=== PATIENT | male | born 1955 | race Caucasian/White ===

== ENCOUNTER 2016-07-11 20:56 | Emergency (ER) | payer OTHER ==
[~2016-07-11] VITALS: Ht 172.7 cm; Wt 73.5 kg
[~2016-07-11 20:56] MED LIST: APA PO; BENICAR5 MG PO; HYDROCODONE PO; TRICOR48 MG PO
[2016-07-11 21:03] VITALS: BP 142/81
--- NOTE | 2016-07-11 22:18 | NUR ---
PATIENT TO ER BED 7.
--- NOTE | 2016-07-11 22:25 | NUR ---
PT BIB TO ED WITH C/O EPIGASTRIC PAIN,UMBILICAL PAIN FOR 3 DAYS, WITH DIARRHEA, NAUSEA. PT STATES HX OF STENT IN HEART AND STROKE IN 2010. DENIES V; SKIN IS PINK/WARM/DRY; AAOX4 WITH EVEN AND STEADY GAIT; LUNGS CLEAR BL; HR EVEN AND REGULAR; PT DENIES ANY FEVER, CP, SOB, OR COUGH AT THIS TIME; PATIENT STATES PAIN OF 6/10 AT THIS TIME; VSS; PATIENT POSITIONED FOR COMFORT; HOB ELEVATED; BEDRAILS UP X2; BED DOWN. ER MD MADE AWARE OF PT STATUS.
--- NOTE | 2016-07-11 22:30 | NUR ---
Patient being evaluated by physician at bedside.
[2016-07-11] MEDS ORDERED: NACL 0.9% 1,000 ML IV ONE (22:35)
[2016-07-11] MEDS ORDERED: fentaNYL 0.05 MG/ML VIAL IVP ONE (22:40)
[2016-07-11] MEDS ORDERED: ONDANSETRON 4 MG/2 ML VIAL IVP ONE (22:40)
[2016-07-12 00:18] VITALS: BP 136/72
--- NOTE | 2016-07-12 00:18 | NUR ---
Patient discharged with v/s stable. Written and verbal after care instructions given and explained. Patient alert, oriented and verbalized understanding of instructions. Ambulatory with steady gait. All questions addressed prior to discharge. ID band removed. Patient advised to follow up with PMD. Rx of MAGNESIUM CITRATE, MIRALAX AND TRAMADOL HYDROCHLORIDE given. Patient educated on indication of medication including possible reaction and side effects. Opportunity to ask questions provided and answered.
--- NOTE | 2016-07-12 09:31 | NUR ---
ADDENDUM: RECIEVED CALL FROM [facility] ARMIDA RAND RESULT OF CT. ABD/PELVIS. REPORT GIVEN TO DR. GONZALEZ
== END 2016-07-12 00:18 | disposition home or self-care (01) ==
LOC: MED 20:56
DX: R10.13 Epigastric pain (principal); I10 Essential (primary) hypertension; Z86.73 Personal history of transient ischemic attack (TIA), and cerebral infarction without residual deficits
CPT/HCPCS: 36415; 74022; 80053; 83690; 85025; 85610; 85730; 93005; 96361; 96374; 96375; 99285; J2405; J3010

== ENCOUNTER 2016-09-25 09:53 | Emergency (ER) | payer OTHER ==
[~2016-09-25] VITALS: Ht 172.7 cm; Wt 75.1 kg
[~2016-09-25 09:53] MED LIST changes: -APA PO; -BENICAR5 MG PO; -HYDROCODONE PO; +OLME5TAB PO; +TRI48 PO; -TRICOR48 MG PO; +[UNRECOGNIZED DRUG - CODE] PO
[2016-09-25 10:28] VITALS: BP 155/110
--- NOTE | 2016-09-25 14:18 | NUR ---
Patient to OF.
--- NOTE | 2016-09-25 14:20 | NUR ---
61M BIB FAMILY C/O SHAKINESS X TODAY; PT STATES CAME IN FOR BLOOD TEST AT THE HOSPITAL BUT WAS SENT TO ER FOR TREMORS IN BL ARMS, LIPS, AND DIZZINESS; PT STATES NO PAIN, N/V/D, OR VISION CHANGES AT THIS TIME; HX: HTN, HIGH CHOLESTEROL; PT AA&OX4, PERRLA, BL LUNG SOUNDS CLEAR, RR EVEN/UNLABORED, SKIN IS WARM/DRY/INTACT AT THIS TIME; PT RESITNG IN CHAIR, POSITIONED FOR COMFORT; ER MD MADE AWARE OF STATUS. WILL CONTINUE TO MONITOR.
--- NOTE | 2016-09-25 14:24 | NUR ---
Pt being evaluated by TIERA Torres in overflow.
--- NOTE | 2016-09-25 14:43 | NUR ---
Lab drawing in overflow.
[2016-09-25 14:51] LABS: BASOPHILS # (AUTO) 0.2 K/uL (0.00-0.22); BASOPHILS % (AUTO) 2.5 % (0.0-2.0); EOSINOPHILS # (AUTO) 0.2 K/uL (0-0.4); EOSINOPHILS % (AUTO) 2.4 % (0.0-4.0); HEMATOCRIT 44.2 % (36-52); HEMOGLOBIN 14.7 g/dL (12.0-18.0); LYMPHOCYTES # (AUTO) 1.8 K/uL (2.0-11.5); LYMPHOCYTES % (AUTO) 21.4 % (20.5-51.1); MEAN CORPUSCULAR HEMOGLOBIN 31 pg (27-31); MEAN CORPUSCULAR HGB CONC 33 g/dL (33-37); MEAN CORPUSCULAR VOLUME 92 fL (80-94); MONOCYTES # (AUTO) 0.3 K/uL (0.8-1.0); MONOCYTES % (AUTO) 3.2 % (1.7-9.3); NEUTROPHILS % (AUTO) 70.5 % (42.2-75.2); PLATELET COUNT (AUTO) 231 K/uL (140-450); RED BLOOD CELL COUNT(AUTO) 4.79 MIL/uL (4.20-6.10); RED CELL DISTRIBUTION WIDTH 12.7 % (11.6-13.7); WHITE BLOOD COUNT (AUTO) 8.5 K/uL (4.8-10.8)
[2016-09-25 14:58] LABS: ANION GAP 13.1 (8-16); CALCIUM 8.6 mg/dL (8.5-10.1); CREATININE 0.7 mg/dL (0.7-1.3); POTASSIUM 4.1 mmol/L (3.5-5.1)
[2016-09-25 16:02] VITALS: BP 146/82
--- NOTE | 2016-09-25 16:02 | NUR ---
Patient discharged with v/s stable. Written and verbal after care instructions given and explained. Patient verbalized understanding. Ambulatory with steady gait. All questions addressed prior to discharge. Advised to follow up with PMD.
== END 2016-09-25 16:02 | disposition home or self-care (01) ==
LOC: EDSTATUS 09:53 → MED 09:53
DX: R55 Syncope and collapse (principal); I10 Essential (primary) hypertension; E78.5 Hyperlipidemia, unspecified; Z79.899 Other long term (current) drug therapy
CPT/HCPCS: 36415; 80048; 82948; 85025; 99284

== ENCOUNTER 2017-09-22 12:04 | Emergency (ER) | payer OTHER ==
[~2017-09-22] VITALS: Ht 167.6 cm; Wt 70.3 kg
[~2017-09-22 12:04] MED LIST changes: +ACET-9526 PO; -[UNRECOGNIZED DRUG - CODE] PO
[2017-09-22 12:13] VITALS: BP 136/76
--- NOTE | 2017-09-22 12:32 | NUR ---
PT. CAME INTO THE ED DUE TO PAIN UPON URINATION X 10 DAYS. PT. STATES " IT HURTS WHEN I GO PEE AND I GO JUST A LITTLE BIT EVERY 30 MIN, I WENT TO MY DOCTOR AND HE GAVE ME ANTIBIOTICS AND AZO AND IT STILL HAS NOT GOTTEN BETTER". PT. HAS 9/10 PAIN UPON URINATION THAT IS NON RADIATING AND DESRIBED BURNING. PT. DENIES ANY FEVERS AT THIS TIME. PT. DENIES HAVING ANY PROSTATE HISTORY. SUPRAPUBIC TENDERNESS UPON PALPATION. ER MD NOTIFIED. WILL CONTINUE TO MONITOR.
--- NOTE | 2017-09-22 13:15 | NUR ---
PT. ABLE TO VOID AND PROVIDE A FULL CUP OF URINE SAMPLE, ER MD ALLISON MADE AWARE. PER DOCTOR OSBORN CATHETER INSERTION NOT NEEDED AT THIS TIME.
[2017-09-22 13:25] LABS: BASOPHILS % (AUTO) 0.6 % (0.0-2.0); EOSINOPHILS # (AUTO) 0.3 K/uL (0-0.4); EOSINOPHILS % (AUTO) 4.3 % (0.0-4.0); HEMOGLOBIN 13.9 g/dL (12.0-18.0); LYMPHOCYTES # (AUTO) 1.4 K/uL (2.0-11.5); LYMPHOCYTES % (AUTO) 20.5 % (20.5-51.1); MEAN CORPUSCULAR HEMOGLOBIN 31 pg (27-31); MEAN CORPUSCULAR HGB CONC 33 g/dL (33-37); MEAN CORPUSCULAR VOLUME 92.4 fL (80-94); MONOCYTES # (AUTO) 0.5 K/uL (0.8-1.0); MONOCYTES % (AUTO) 6.7 % (1.7-9.3); NEUTROPHILS # (AUTO) 4.7 K/uL (1.8-7.7); NEUTROPHILS % (AUTO) 67.9 % (42.2-75.2); PLATELET COUNT (AUTO) 248 K/uL (140-450); RED BLOOD CELL COUNT(AUTO) 4.54 MIL/uL (4.20-6.10); RED CELL DISTRIBUTION WIDTH 13.4 % (11.6-13.7)
[2017-09-22 13:28] LABS: APPEARANCE,URINE CLEAR (CLEAR); BILIRUBIN,URINE NEGATIVE (NEGATIVE); BLOOD, URINE 2+ (NEGATIVE); COLOR,URINE YELLOW (YELLOW); LEUKOCYTE ESTERASE ,URINE TRACE (NEGATIVE); NITRITE, URINE NEGATIVE (NEGATIVE); UGLUCOSE NEGATIVE (NEGATIVE)
[2017-09-22 13:37] LABS: ANION GAP 12.8 (8-16); CREATININE 0.8 mg/dL (0.7-1.3); POTASSIUM 3.8 mmol/L (3.5-5.1)
[2017-09-22 13:37] LABS: RBC,URINE 3-10 (FEW) /HPF (0-5); WBC,URINE 0-5 (RARE) /HPF (0-5)
[2017-09-22 13:51] LABS: ALBUMIN 3.6 g/dL (3.4-5.0); TOTAL BILIRUBIN 0.4 mg/dL (0.0-1.0)
--- NOTE | 2017-09-22 14:03 | NUR ---
PT. RESTING COMFORTABLY IN BED, RR EVEN AND UNLABORED. BED IN LOWEST POSITION. WILL CONTINUE TO MONITOR.
[2017-09-22] MEDS ORDERED: PHENAZOPYRIDINE 100 MG TAB PO ONE (14:05)
[2017-09-22] MEDS ORDERED: IBUPROFEN 400 MG TAB PO ONE (14:05)
[2017-09-22 14:24] VITALS: BP 132/81
--- NOTE | 2017-09-22 14:25 | NUR ---
Patient discharged with v/s stable. Written and verbal after care instructions given and explained. Patient alert, oriented and verbalized understanding of instructions. Ambulatory with steady gait. All questions addressed prior to discharge. ID band removed. Patient advised to follow up with PMD. Rx of TRAMADOL/KEFLEX given. Patient educated on indication of medication including possible reaction and side effects. Opportunity to ask questions provided and answered.
== END 2017-09-22 14:25 | disposition home or self-care (01) ==
LOC: MED 12:04
DX: N40.1 Benign prostatic hyperplasia with lower urinary tract symptoms (principal); N39.0 Urinary tract infection, site not specified; I25.2 Old myocardial infarction; I10 Essential (primary) hypertension; Z79.899 Other long term (current) drug therapy
CPT/HCPCS: 36415; 80053; 81001; 83605; 85025; 87040; 87086; 99284

== ENCOUNTER 2017-10-16 02:59 | Inpatient (IN) | payer OTHER, MEDICAID ==
[~2017-10-16] VITALS: Ht 172.7 cm; Wt 67.1 kg
[2017-10-16 03:00] VITALS: BP 160/80
--- NOTE | 2017-10-16 03:17 | NUR ---
PT TAKEN TO BED 11
[2017-10-16] MEDS ORDERED: KETOROLAC 30 MG/ML VIAL IVP ONE (03:20)
[2017-10-16] MEDS ORDERED: ASPIRIN 81 MG TAB.CHEW PO ONE (03:20)
--- NOTE | 2017-10-16 03:21 | NUR ---
PATIENT PRESENTS TO ED WITH C/O CHEST PAIN RADAITING TO LT ARM X 3 DAYS. DENIES SOB, N/V. PT SKIN IS PINK/WARM/DRY; AAOX4 WITH EVEN AND STEADY GAIT; LUNGS CLEAR BL; PATIENT STATES PAIN OF 8/10 AT THIS TIME; PATIENT POSITIONED FOR COMFORT; HOB ELEVATED; BEDRAILS UP X2; BED DOWN. ER MD MADE AWARE OF PT STATUS.
[2017-10-16 03:36] LABS: BASOPHILS % (AUTO) 0.4 % (0.0-2.0); EOSINOPHILS # (AUTO) 0.2 K/uL (0-0.4); EOSINOPHILS % (AUTO) 2.2 % (0.0-4.0); HEMATOCRIT 41.4 % (36-52); LYMPHOCYTES # (AUTO) 2.6 K/uL (2.0-11.5); LYMPHOCYTES % (AUTO) 34.2 % (20.5-51.1); MEAN CORPUSCULAR HEMOGLOBIN 31 pg (27-31); MEAN CORPUSCULAR HGB CONC 34 g/dL (33-37); MEAN CORPUSCULAR VOLUME 91.7 fL (80-94); MONOCYTES # (AUTO) 0.4 K/uL (0.8-1.0); MONOCYTES % (AUTO) 5.8 % (1.7-9.3); NEUTROPHILS # (AUTO) 4.4 K/uL (1.8-7.7); NEUTROPHILS % (AUTO) 57.4 % (42.2-75.2); PLATELET COUNT (AUTO) 197 K/uL (140-450); RED BLOOD CELL COUNT(AUTO) 4.52 MIL/uL (4.20-6.10); RED CELL DISTRIBUTION WIDTH 13.2 % (11.6-13.7); WHITE BLOOD COUNT (AUTO) 7.6 K/uL (4.8-10.8)
--- NOTE | 2017-10-16 03:40 | NUR ---
LABS AND PIV DONE AT BEDSIDE. PT TOLERATED WELL.
[2017-10-16] MEDS ORDERED: METO25TA PO (03:41)
[2017-10-16] MEDS ORDERED: AMLO5TAB PO ×2 (03:41→05:37)
[2017-10-16] MEDS ORDERED: OMEP20TC12 PO (03:41)
[2017-10-16] MEDS ORDERED: ASPI-1677 PO (03:41)
[2017-10-16] MEDS ORDERED: FURO-572 PO (03:42)
[2017-10-16] MEDS ORDERED: PRAV20TA2 PO (03:42)
--- NOTE | 2017-10-16 03:45 | NUR ---
Dr. Jauregui evaluating patient at bedside.
[2017-10-16 03:46] LABS: ANION GAP 14.1 (8-16); CARBON DIOXIDE 26.3 mmol/L (21-32); CREATININE 0.9 mg/dL (0.7-1.3); POTASSIUM 3.4 mmol/L (3.5-5.1)
[2017-10-16 03:52] LABS: ALBUMIN 4.4 g/dL (3.4-5.0); TOTAL BILIRUBIN 0.5 mg/dL (0.0-1.0)
--- NOTE | 2017-10-16 03:58 | NUR ---
X-Ray at bedside.
[2017-10-16 04:13] LABS: PROTHROMBIN TIME 10.2 secs (10.8-13.4)
[2017-10-16] MEDS ORDERED: ACETAMINOPHEN 325 MG TAB PO PRN (04:25)
[2017-10-16] MEDS ORDERED: ONDANSETRON 4 MG/2 ML VIAL IVP PRN (04:25)
[2017-10-16] MEDS ORDERED: ZOLPIDEM 5 MG TAB PO PRN (04:25)
[2017-10-16] MEDS ORDERED: NITROGLYCERIN 0.4 MG TAB SL PRN (04:25)
--- NOTE | 2017-10-16 04:44 | NUR ---
APatient will be admitted to care of DR JAIME. Admited to TELE. Will go to room 106B. Belongings list completed. Report to SARAHI MCKEON.
[2017-10-16] MEDS ORDERED: POTASSIUM CHLORIDE 10 MEQ TABER PO SCH (05:00)
--- NOTE | 2017-10-16 05:00 | NUR ---
ADMITTED THIS 62 YEAR OLD MALE FORM ER PER BETTINA WITH CC OF CHEST PAIN X3 DAYS, AMBULATED TO BED WITH STEADY GAIT, ASSESSMENT DONE, PT SPEAKS LUXEMBOURGISH AND SOME ARABIC, VITAL SIGNS TAKEN, BP SLIGHTLY ELEVATED, DENIES PAIN AT THIS TIME, ORIENTED TO ROOM AND CALL LIGHT, PLAN OF CARE DISCUSSED, CALL LIGHT WITHIN REACH.
[2017-10-16 05:21] VITALS: BP 150/71
[2017-10-16] MEDS: NACL 0.9% 1,000 ML IV SCH (05:34)
[2017-10-16] MEDS ORDERED: MELA5TAB5 PO (05:37)
--- NOTE | 2017-10-16 05:45 | NUR ---
PT AMBULATED TO BR WITH STEADY GAIT, VOIDED FREELY, URINE SENT TO LAB FOR TEST, PT COMPLAINING OF LACK OF SLEEP FOR 3 DAYS WHEN CHEST PAIN BEGAN, 1 TIME DOSE ATIVAN PO GIVEN ORDERED, SAFETY MEASURES IN PLACE, MONITORED CLOSELY.
[2017-10-16] MEDS ORDERED: LORazepam 1 MG TAB PO SCH (06:00)
[2017-10-16 06:30] LABS: APPEARANCE,URINE CLEAR (CLEAR); BILIRUBIN,URINE NEGATIVE (NEGATIVE); BLOOD, URINE 2+ (NEGATIVE); COLOR,URINE YELLOW (YELLOW); LEUKOCYTE ESTERASE ,URINE TRACE (NEGATIVE); NITRITE, URINE NEGATIVE (NEGATIVE); UGLUCOSE NEGATIVE (NEGATIVE)
[2017-10-16 06:40] LABS: RBC,URINE 3-10 (FEW) /HPF (0-5); WBC,URINE 0-5 (RARE) /HPF (0-5)
[2017-10-16 07:20] LABS: CHOL/HDL RATIO 3.5 (1-4.5); FREE T4 (FREE THYROXINE) 1.6 ng/dL (0.76-1.46); MAGNESIUM 2.1 mg/dL (1.8-2.4); PHOSPHORUS 2.9 mg/dL (2.5-4.9); THYROID STIMULATING HORMONE 2.57 uIU/mL (0.34-3.74)
--- NOTE | 2017-10-16 07:20 | NUR ---
PT AWAKE, NO DISTRESS NOTED, REPORT GIVEN TO SARAHI MC FOR CONTINUITY OF CARE.
--- NOTE | 2017-10-16 07:21 | NUR ---
RECEIVED REPORT FROM FACE CLEANER NURSE LINDA AT BEDSIDE FOR CONTINUITY OF CARE. PT IS AWAKE AND ORIENTED X4. INTRODUCED SELF AND UPDATED BOARD. PT DENIES PAIN, DENIES HAVING ANY CHEST PAIN. STATED HE IS SLEEPY AND DID NOT GET MUCH SLEEP LAST NIGHT. LUNG SOUNDS CLEAR ON AUSCULTATION. O2 SAT 96% ON RA. SKIN INTACT. IV TO R HAND 20G INTACT. NO SIGNS OF DISTRESS. ASSISTED PT TO SITTING UP POSITION IN BED. CALL LIGHT WITHIN REACH. BED IN LOW POSITION, WHEELS LOCKED. WILL CONTINUE TO MONITOR.
[2017-10-16] MEDS ORDERED: PANTOPRAZOLE 40 MG TABEC PO SCH (07:30)
[2017-10-16 07:45] VITALS: BP 137/76
[2017-10-16] MEDS: DOCUSATE SODIUM 100 MG GELCAP PO SCH ×2 (08:11→21:00)
[2017-10-16] MEDS: METOPROLOL 25 MG TAB PO SCH (08:11)
[2017-10-16] MEDS: LISINOPRIL 5 MG TAB PO SCH (08:11)
[2017-10-16] MEDS: ASPIRIN 81 MG TAB.CHEW PO SCH (08:12)
[2017-10-16] MEDS: FUROSEMIDE 20 MG TAB PO SCH (08:12)
--- NOTE | 2017-10-16 08:19 | NUR ---
ADMINISTERED SCHEDULED MEDS. EDUCATED PT ON PURPOSE AND SIDE EFFECTS. PT VERBALIZED UNDERSTANDING. TOLERATED MEDS WELL. PT STATED HE WANTED TO SLEEPING. NO SIGNS OF DISTRESS. INFORMED PT TO USE CALL LIGHT WHEN NEED OF ASSISTANCE. VERBALIZED UNDERSTANDING. WILL CONTINUE TO MONITOR.
[2017-10-16] MEDS ORDERED: OMEPRAZOLE PO SCH (09:00)
[2017-10-16] MEDS ORDERED: NON-FORMULARY ITEM (Pravastatin Sodium* (Pravachol*) 20 MG) PO SCH (09:00)
--- NOTE | 2017-10-16 10:19 | NUR ---
PT SLEEPING IN ROOM, VOIDED IN URINAL 300ML OUTPUT OF STRAW COLORED URINE NOTED. NO SIGNS OF DISTRESS. ASKED IF PT NEEDED ANYTHING RIGHT NOW. PT STATED "NO." CALL LIGHT WITHIN REACH. BED IN LOW POSITION, WHEELS LOCKED, WILL CONTINUE TO MONITOR.
--- NOTE | 2017-10-16 10:30 | NUR ---
PATIENT HAS BEEN SCREENED AND CATEGORIZED HIGH NUTRITION RISK. PATIENT WILL BE SEEN WITHIN 1-2 DAYS OF ADMISSION. 10/16/17 10/17/[address]
--- NOTE | 2017-10-16 11:00 | NUR ---
PT WAS COMPLAINING OF HEADACHE. ADMINISTERED TYLENOL PO FOR HEADACHE. PT TOLERATED WELL. NO SIGNS OF DISTRESS. ASKED IF PT NEEDED ANYTHING ELSE. STATED "NO". WILL CONTINUE TO MONITOR.
[2017-10-16 12:00] VITALS: BP 118/66
--- NOTE | 2017-10-16 12:28 | NUR ---
DR. FLEMING CAME TO SEE PT CONSULT. PT STATED "NO MORE HEADACHE." DENIES CHEST PAIN. VS WNL. WILL CONTINUE TO MONITOR.
[2017-10-16] MEDS ORDERED: SULF-58 PO (13:10)
[2017-10-16] MEDS ORDERED: ASCO1CAP75 PO (13:10)
[2017-10-16] MEDS ORDERED: LACTOBACILLUS RHAMNOSUS GG 1 EACH CAP PO SCH (13:30)
--- NOTE | 2017-10-16 14:00 | NUR ---
ADMINISTERED ROCEPHIN IVPB AND CULTURELLE PO. EDUCATED PT ON PURPOSE OF MED AND SIDE EFFECTS. PT TO VERBALIZED UNDERSTANDING. STATED HE TOOK ROCEPHIN PO BEFORE. FAMILY AT BEDSIDE . NO COMPLAINTS AT THIS TIME. WILL CONTINUE TO MONITOR.
--- NOTE | 2017-10-16 14:53 | NUR ---
PT AMBULATED DOWN THE CUELLO WITH STANDBY ASSIST. WALKED WITH STEADY GAIT. NO DYSPNEA. PT DENIES CHEST PAIN POST AMBULATION. FAMILY AT BEDSIDE. PT ASKED FOR JELL-O. NO SIGNS OF DISTRESS. CALL LIGHT WITHIN REACH. WILL CONTINUE TO MONITOR.
[2017-10-16] MEDS ORDERED: amLODIPine 5 MG TAB PO SCH ×2 (15:00→17:00)
--- NOTE | 2017-10-16 15:14 | NUR ---
ATTEMPTED TO COMPLETE EKG FAMILY STATES THEY WANT PT LEFT ALONE TO SLEEP. EXPLAINED INDICATIONS FOR PROCEDURE STILL WANT PT TO BE LEFT ALONE TO SLEEP. WILL CHECK BACK AT A LATER TIME.
[2017-10-16 16:00] VITALS: BP 106/56
--- NOTE | 2017-10-16 17:15 | NUR ---
PT SLEEPING WITH VISIBLE RESPIRATIONS, NO SIGNS OF DISTRESS. FAMILY AT BEDSIDE. PT DENIES CHEST PAIN. CALL LIGHT WITHIN REACH. WILL CONTINUE TO MONITOR.
--- NOTE | 2017-10-16 19:27 | NUR ---
ENDORSED PT TO WEED CUTTER NURSE MARCIAL AT BEDSIDE FOR CONTINUITY OF CARE. PT IN STABLE CONDITION.
--- NOTE | 2017-10-16 19:28 | NUR ---
RECEIVED REPORT FROM DAY SHIFT NURSE. AAOX4. NO C/O PAIN. NO RESP DISTRESS NOTED. PT ON ROOM AIR. IV TO RIGHT HAND #20G, PATENT AND INTACT. SKIN INTACT. DISCUSSED PLAN OF CARE, PT VERBALIZED UNDERSTANDING. SAFETY PRECAUTION IN PLACE. CALL LIGHT WITHIN REACH.
[2017-10-16 20:00] VITALS: BP 99/56
--- NOTE | 2017-10-16 20:42 | NUR ---
PT REFUSED COLACE. PER PT, HE DOESN'T NEED IT, HE HAD 2 BM TODAY.
[2017-10-16] MEDS ORDERED: SIMVASTATIN 10 MG TAB PO SCH (21:00)
[2017-10-16] MEDS ORDERED: NON-FORMULARY ITEM (Melatonin (Melatonin) 1 TAB) PO SCH (21:00)
[2017-10-16] MEDS ORDERED: ATORVASTATIN 20 MG TAB PO SCH (21:00)
--- NOTE | 2017-10-16 22:50 | NUR ---
PT LYING IN BED. NO C/O PAIN OR SOB. NEEDS MET AT THIS TIME. FALL PRECAUTION IN PLACE. CALL LIGHT WITHIN REACH.
[2017-10-17] VITALS: BP 117/63
--- NOTE | 2017-10-17 01:47 | NUR ---
PT SLEEPING BUT EASILY AROUSABLE. NO S/S OF PAIN OR DISCOMFORT. NO S/S OF RESP DISTRESS.
[2017-10-17 04:00] VITALS: BP 126/69
--- NOTE | 2017-10-17 04:10 | NUR ---
PT SLEEPING. RESP EVEN AND UNLABORED. NO S/S OF PAIN. SAFETY PRECAUTION IN PLACE. CALL LIGHT WITHIN REACH.
[2017-10-17] MEDS: NACL 0.9% 1,000 ML IV SCH (04:21)
--- NOTE | 2017-10-17 06:15 | NUR ---
PT LYING IN BED WITH EYES CLOSED. NO S/S OF DISTRESS.
[2017-10-17] MEDS ORDERED: PANTOPRAZOLE 40 MG TABEC PO SCH (06:30)
[2017-10-17 06:56] LABS: BASOPHILS % (AUTO) 0.3 % (0.0-2.0); EOSINOPHILS # (AUTO) 0.2 K/uL (0-0.4); EOSINOPHILS % (AUTO) 2.8 % (0.0-4.0); HEMATOCRIT 42.5 % (36-52); HEMOGLOBIN 14.4 g/dL (12.0-18.0); LYMPHOCYTES # (AUTO) 1.8 K/uL (2.0-11.5); LYMPHOCYTES % (AUTO) 29.6 % (20.5-51.1); MEAN CORPUSCULAR HEMOGLOBIN 31 pg (27-31); MEAN CORPUSCULAR HGB CONC 34 g/dL (33-37); MEAN CORPUSCULAR VOLUME 92.6 fL (80-94); MONOCYTES # (AUTO) 0.4 K/uL (0.8-1.0); MONOCYTES % (AUTO) 6.5 % (1.7-9.3); NEUTROPHILS # (AUTO) 3.7 K/uL (1.8-7.7); NEUTROPHILS % (AUTO) 60.8 % (42.2-75.2); PLATELET COUNT (AUTO) 190 K/uL (140-450); RED BLOOD CELL COUNT(AUTO) 4.59 MIL/uL (4.20-6.10); RED CELL DISTRIBUTION WIDTH 13.5 % (11.6-13.7); WHITE BLOOD COUNT (AUTO) 6.1 K/uL (4.8-10.8)
--- NOTE | 2017-10-17 07:00 | NUR ---
ENDORSED PT TO DAY SHIFT NURSE. PT IN STABLE CONDITION.
--- NOTE | 2017-10-17 07:05 | NUR ---
RECEIVED PT FROM PRIMER AND POWDER CANNING LEADER NURSE, MARTINA, PT IS AWAKE LYING ON THE BED WITH SIDE RAILS UP AND CALL LIGHT WITHIN REACH. PT HAS AN IV LINE ON THE RIGHT HAND G. 20 NS AT TKO 10ML/HR, INTACT, PATENT AND INFUSING. PT DENIES ANY PAIN AT HIS TIME. NO SIGN OF DISTRESS NOTED AND WII CONTINUE TO MONITOR.
--- NOTE | 2017-10-17 07:40 | NUR ---
PT IS AWAKE AND SEATED ON THE BED, EATING HIS BREAKFAST, VITAL SIGNS TAKEN AND IS STABLE. NO SIGN OF DISTRESS NOTED AND PT DENIES PAIN. WILL CONTINUE TO MONITOR.
[2017-10-17 07:41] LABS: ANION GAP 11.7 (8-16); CARBON DIOXIDE 29.5 mmol/L (21-32); CREATININE 0.9 mg/dL (0.7-1.3); POTASSIUM 4.2 mmol/L (3.5-5.1)
[2017-10-17 08:00] LABS: MAGNESIUM 2.1 mg/dL (1.8-2.4); PHOSPHORUS 3.3 mg/dL (2.5-4.9)
[2017-10-17] MEDS: DOCUSATE SODIUM 100 MG GELCAP PO SCH (08:16)
[2017-10-17] MEDS: ASPIRIN 81 MG TAB.CHEW PO SCH (08:17)
[2017-10-17] MEDS: FUROSEMIDE 20 MG TAB PO SCH (08:18)
[2017-10-17] MEDS: LISINOPRIL 5 MG TAB PO SCH (08:19)
[2017-10-17] MEDS: METOPROLOL 25 MG TAB PO SCH (08:21)
--- NOTE | 2017-10-17 08:42 | NUR ---
SPOKE TO DR. RAHMAN AND INFORMED HER THAT THE PT REFUSED THE HEPARIN INJECTION. ACKNOWLEDGED.
[2017-10-17] MEDS ORDERED: LACTOBACILLUS RHAMNOSUS GG 1 EACH CAP PO SCH (09:00)
[2017-10-17] MEDS ORDERED: PRAV40TA1 PO (10:07)
[2017-10-17] MEDS ORDERED: NITR0.4S14 SL (10:07)
--- NOTE | 2017-10-17 10:35 | NUR ---
DR. RAHMAN SAID NOT TO DISCHARGE THE PT UNTIL THE ECHOCARDIOGRAM IS DONE. DR. RAHMAN SAID THAT THE PT AND DAUGHTER WAS INFORMED AND ACKNOWLEDGED THE ORDER. WILL FOLLOW THROUGH.
--- NOTE | 2017-10-17 10:50 | NUR ---
PT IS AWAKE, LYING ON THE BED TALKING WITH THE DAUGHTER ON THE BEDSIDE. PT WAS ASKED IF DR. RAHMAN INFORMED HIM OF THE ECHO TO BE DONE ON HIM AND PT VERBALIZED UNDERSTANDING. NO SIGN OF DISTRESS NOTED ON THE PT. WILL CONTINUE TO MONITOR.
[2017-10-17 10:57] VITALS: BP 123/65
--- NOTE | 2017-10-17 11:26 | NUR ---
ECHO IS BEING DONE TO THE PT NOW. NO SIGN OF DISTRESS NOTED ON THE PT. WILL CONTINUE TO MONITOR.
--- NOTE | 2017-10-17 11:45 | NUR ---
ECHO WAS FINISHED NOW. PT IS TALKING TO HIS DAUGHTER ON THE BEDSIDE AND NO SIGN OF DISTRESS NOTED. WILL MONITOR.
[2017-10-17 12:00] VITALS: BP 122/63
[2017-10-17] MEDS ORDERED: amLODIPine 5 MG TAB PO SCH (12:00)
--- NOTE | 2017-10-17 12:00 | NUR ---
SPOKE TO DR. RAHMAN AND INFORMED HER THAT THE ECHO WAS ALREADY DONE TO THE PT. DR. RAHMAN ACKNOWLEDGED AND SAID THAT THE PT IS GOOD TO GO HOME. ACKNOWLEDGED THE MD STATEMENT AND WILL FACILITATE DISCHARGE PROCESS.
--- NOTE | 2017-10-17 12:12 | NUR ---
PT IS AWAKE AND LYING ON THE BED WITH DAUGHTER ON THE BEDSIDE, VITAL SIGNS TAKEN AND IS STABLE. MEDICATION GIVEN AND PT TOLERATED IT. NO SIGN OF DISTRESS NOTED ON THE PT.
--- NOTE | 2017-10-17 12:43 | NUR ---
DISCHARGED PT VIA WHEELCHAIR ACCOMPANIED BY THE DAUGHTER. DISCHARGE TEACHING ON PRESCRIBED MEDICATIONS AND DISCHARGE INSTRUCTIONS GIVEN TO THE PT AND PT VERBALIZED UNDERSTANDING,DAUGHTER ON THE BEDSIDE. IV LINE AND ARM BANDS REMOVED. PT IS STABLE AT THIS TIME WITH NO SIGN OF DISTRESS NOTED.
== END 2017-10-17 12:43 | disposition home or self-care (01) | DRG 205 ==
LOC: MED 02:59 → MTU 04:28
PROVIDERS: ADMIT General Practice; ATTEND General Practice
DX: M94.0 Chondrocostal junction syndrome [Tietze] (principal); N17.0 Acute kidney failure with tubular necrosis; I25.110 Atherosclerotic heart disease of native coronary artery with unstable angina pectoris; N39.0 Urinary tract infection, site not specified; E78.5 Hyperlipidemia, unspecified; K21.9 Gastro-esophageal reflux disease without esophagitis; E87.6 Hypokalemia; I25.2 Old myocardial infarction; Z86.73 Personal history of transient ischemic attack (TIA), and cerebral infarction without residual deficits; I11.9 Hypertensive heart disease without heart failure; Z98.61 Coronary angioplasty status; I08.1 Rheumatic disorders of both mitral and tricuspid valves; G47.33 Obstructive sleep apnea (adult) (pediatric)
CPT/HCPCS: 36415; 71045; 80048; 80053; 81001; 82150; 83036; 83690; 83735; 83880; 84100; 84439; 84443; 84484; 85025; 85610; 85730; 87081; 87086; 93005; J0696; J1644; J1885; J7030; J7060; Q0092

== ENCOUNTER 2018-11-08 09:14 | Outpatient (CLI) | payer OTHER ==
[~2018-11-08 09:14] MED LIST changes: -ACET-9526 PO; +AMLO5TAB PO; +ASCO1CAP75 PO; +ASPI-1677 PO; +FURO-572 PO; +MELA5TAB6 PO; +METO25TA PO; +NITR0.4S14 SL; -OLME5TAB PO; +OMEP20TC12 PO; +PRAV40TA1 PO; +SULF-58 PO; -TRI48 PO
[2018-11-08 10:07] LABS: ALBUMIN 3.5 g/dL (3.4-5.0); ANION GAP 13.7 (8-16); BILIRUBIN,DIRECT 0.1 mg/dL (0.0-0.3); CARBON DIOXIDE 26.2 mmol/L (21-32); CHOL/HDL RATIO 3.6 (1-4.5); CREATININE 0.8 mg/dL (0.7-1.3); POTASSIUM 3.9 mmol/L (3.5-5.1); TOTAL BILIRUBIN 0.5 mg/dL (0.0-1.0)
== END 2018-11-08 20:12 | disposition home or self-care (01) ==
LOC: MLB 09:14
DX: I10 Essential (primary) hypertension (principal)
CPT/HCPCS: 36415; 80053; 82248

== ENCOUNTER 2020-10-11 09:14 | Outpatient (CLI) | payer OTHER, MEDICAID ==
[~2020-10-11 09:14] MED LIST changes: -ASPI-1677 PO; +ASPI-1884 PO; -NITR0.4S14 SL; +NITR12SP3 SL; +OMEP-278 PO; -OMEP20TC12 PO
== END 2020-10-11 19:50 | disposition home or self-care (01) ==
LOC: MUS 09:14
DX: N28.1 Cyst of kidney, acquired (principal); K82.8 Other specified diseases of gallbladder
CPT/HCPCS: 76700